=== PATIENT | female | born 1960 | race Caucasian/White ===

== ENCOUNTER 2018-04-24 08:31 | Outpatient (CLI) | payer MEDICAID ==
--- NOTE | 2018-04-24 12:24 | Diagnostic Imaging Report ---
Ultrasound of the bilateral breasts HISTORY: Nodules, follow-up COMPARISON: No images available. Ultrasound report from outside hospital is available. Technique: Sonography of the bilateral breasts was performed in multiple planes. FINDINGS: Exam of the right breast demonstrates glandular and fatty breast tissue. There is a hypoechoic nodule at 6:00 measuring 0.5 x 0.7 x 0.6 cm. There is also an additional small nodule possibly a cyst located also at 6:00 measuring 0.3 cm. Exam of the left breast demonstrates glandular fatty breast tissue. No discrete focal lesions identified. IMPRESSION: Indeterminate Hypoechoic nodule of the right breast at 6:00 measuring 0.5 x 0.7 x 0.6 cm. Correlation needs to be made with previous ultrasound as this finding may have been seen on prior ultrasound at outside hospital. Additional nodule, possibly a small cyst, also at 6:00 measuring 0.3 cm. Again correlation needs to be made with old exams. A follow-up mammogram of both breasts is also recommended for further assessment and completion of the exam. BI-RADS 0, incomplete further assessment is recommended.
== END 2018-04-24 09:59 ==
LOC: RAD 08:31
DX: N63.13 Unspecified lump in the right breast, lower outer quadrant (principal); N63.24 Unspecified lump in the left breast, lower inner quadrant
CPT/HCPCS: 76641

== ENCOUNTER 2018-12-26 09:18 | Outpatient (CLI) | payer MEDICAID ==
--- NOTE | 2018-12-26 10:45 | Diagnostic Imaging Report ---
Ultrasound of the bilateral breasts HISTORY: Nodules Comparison: Previous right breast nodules seen on ultrasound on 04/24/2018 Technique: Sonography of the bilateral breasts was performed in multiple planes. FINDINGS: Exam of the right breast demonstrates glandular and fatty breast tissue. Again noted is an indeterminate hypoechoic nodule within the right breast at 5:00 measuring 0.6 x 0.4 x 0.7 cm. This may correspond to previous nodule seen at 6:00. No other focal lesions identified. Exam of left breast demonstrates glandular fatty breast tissue. No focal lesions identified. IMPRESSION: Indeterminate hypoechoic nodularity of the right breast at 5:00 measuring 0.6 x 0.7 x 0.4 cm. This may correspond to nodule seen at 6:00 on previous examination. Findings are indeterminate and correlation with recent mammography is needed. If clinically indicated MRI follow-up may also be of value. BI-RADS 0, incomplete. Further assessment is needed including follow-up mammogram of both breasts.
== END 2018-12-26 10:45 ==
LOC: RAD 09:18
DX: N63.14 Unspecified lump in the right breast, lower inner quadrant (principal)
CPT/HCPCS: 76641